=== PATIENT | male | born 1980 | race Caucasian/White ===

== ENCOUNTER 2017-09-26 14:21 | Emergency (ER) | payer OTHER, MEDICAID ==
[~2017-09-26] VITALS: Ht 188 cm; Wt 82.1 kg
[~2017-09-26 14:21] MED LIST: GLU500 PO; IMI50 PO; MIRT30TA PO; QUET400T PO; SERT100T PO
[2017-09-26 14:34] VITALS: BP 138/94
--- NOTE | 2017-09-26 15:52 | NUR ---
PT TAKEN TO OF.
--- NOTE | 2017-09-26 16:10 | NUR ---
SENT FROM THE DENTIST FOR EVALUATION OF LOWER RIGHT JAW/MOUTH PAIN; STARTED LAST NIGHT; HX DM . DENIES N/V/D; SKIN IS PINK/WARM/DRY; AAOX4 WITH EVEN AND STEADY GAIT; LUNGS CLEAR BL; HR EVEN AND REGULAR; PT DENIES ANY FEVER, CP, SOB, OR COUGH AT THIS TIME; PATIENT STATES PAIN OF 10/10 AT THIS TIME; VSS; PATIENT POSITIONED FOR COMFORT; ER MD MADE AWARE OF PT STATUS.
[2017-09-26] MEDS ORDERED: HYDROcodone/APAP 5/325 MG 1 TAB TAB PO ONE (17:05)
[2017-09-26] MEDS ORDERED: CLINDAMYCIN 600 MG/4 ML VIAL IM ONE (17:05)
--- NOTE | 2017-09-26 17:29 | NUR ---
IM CLEOCIN GIVEN TO BOTH RT AND LT GLUTEUS 2ML EACH WITH RN JODIE'S ASSISTANCE
[2017-09-26 18:05] VITALS: BP 122/82
--- NOTE | 2017-09-26 18:05 | NUR ---
Patient discharged with v/s stable. Written and verbal after care instructions given and explained. Patient alert, oriented and verbalized understanding of instructions. Ambulatory with steady gait. All questions addressed prior to discharge. ID band removed. Patient advised to follow up with PMD. Rx of CLINDAMYCIN, NORCO, NAPROSYN, PENICILLIN given. Patient educated on indication of medication including possible reaction and side effects. Opportunity to ask questions provided and answered.
== END 2017-09-26 18:05 | disposition home or self-care (01) ==
LOC: MED 14:21
DX: K04.7 Periapical abscess without sinus (principal); L03.211 Cellulitis of face; E11.9 Type 2 diabetes mellitus without complications; Z88.5 Allergy status to narcotic agent; F17.210 Nicotine dependence, cigarettes, uncomplicated; Z71.6 Tobacco abuse counseling
CPT/HCPCS: 96372; 99283; J3490

== ENCOUNTER 2019-03-16 07:12 | Emergency (ER) | payer OTHER, MEDICAID ==
[~2019-03-16] VITALS: Ht 175.3 cm; Wt 77.1 kg
[2019-03-16 07:15] VITALS: BP 139/63
--- NOTE | 2019-03-16 07:18 | NUR ---
BIBA FROM HOME. PER EMS, PT HAS C/O EPIGASTRIC PAIN RADIATING "UP" X 1 HOUR. PT DENIES ANY N/V. PT IS GUARDING AND CRYING FROM PAIN AT THIS TIME. SKIN WARM AND DRY TO TOUCH. ABDOMEN SOFT, NON TENDER TO TOUCH. PT DENIES SOB, FEVER. IV INITIATED TO LFA, 20G, INTACT AND PATENT. PT PLACED ON FULL STAVE PLANER TENDER. ER TO EVALUATE PT.
--- NOTE | 2019-03-16 07:20 | NUR ---
BLOOD WORK OBTAINED. SENT TO LAB
--- NOTE | 2019-03-16 07:26 | NUR ---
0714-- PT BIBA BLS TO ER BED 8
--- NOTE | 2019-03-16 07:27 | NUR ---
DR. HARDING BEDSIDE EVALUATING PT
--- NOTE | 2019-03-16 07:27 | NUR ---
PT FELL ASLEEP AND DESATURATION NOTED TO 78%. PT WOKEN UP TO TOUCH. PT BACK UP TO 100% 02 SAT RA. PT ADMITS TO TAKING KLONOPIN [address] HARDING AT BEDSIDE. PT STATES NO PAIN AT THIS TIME. FULL CLEAR SPEECH. WILL CONTINUE TO MONITOR.
[2019-03-16] MEDS ORDERED: KETOROLAC 15 MG/ML VIAL IVP ONE ×2 (07:40)
[2019-03-16] MEDS ORDERED: LIDOCAINE VISCOUS 2% 20 ML UDC PO ONE (07:40)
[2019-03-16] MEDS ORDERED: FAMOTIDINE 20 MG/2 ML VIAL IVP ONE (07:40)
[2019-03-16] MEDS ORDERED: ALUMINUM HYD/MAG/SIMETHICONE 30 ML UDC PO ONE (07:40)
[2019-03-16] MEDS ORDERED: PROMETHAZINE 25 MG/ML VIAL IM ONE (07:40)
[2019-03-16] MEDS ORDERED: NACL 0.9% 1,000 ML IV ONE (07:40)
--- NOTE | 2019-03-16 07:48 | NUR ---
PT TAKEN TO CT VIA MARITZA
[2019-03-16 07:56] LABS: BASOPHILS % (AUTO) 0.4 % (0.0-2.0); EOSINOPHILS # (AUTO) 0.2 K/uL (0-0.4); EOSINOPHILS % (AUTO) 2.5 % (0.0-4.0); HEMATOCRIT 43.9 % (36-52); HEMOGLOBIN 14.8 g/dL (12.0-18.0); LYMPHOCYTES # (AUTO) 2.4 K/uL (2.0-11.5); MEAN CORPUSCULAR HEMOGLOBIN 29 pg (27-31); MEAN CORPUSCULAR HGB CONC 34 g/dL (33-37); MEAN CORPUSCULAR VOLUME 85.1 fL (80-94); MONOCYTES # (AUTO) 0.5 K/uL (0.8-1.0); MONOCYTES % (AUTO) 6.2 % (1.7-9.3); NEUTROPHILS # (AUTO) 4.9 K/uL (1.8-7.7); NEUTROPHILS % (AUTO) 60.9 % (42.2-75.2); PLATELET COUNT (AUTO) 350 K/uL (140-450); RED BLOOD CELL COUNT(AUTO) 5.16 MIL/uL (4.20-6.10); RED CELL DISTRIBUTION WIDTH 13.9 % (11.6-13.7)
[2019-03-16 07:56] LABS: APPEARANCE,URINE CLEAR (CLEAR); BILIRUBIN,URINE NEGATIVE (NEGATIVE); BLOOD, URINE NEGATIVE (NEGATIVE); COLOR,URINE YELLOW (YELLOW); LEUKOCYTE ESTERASE ,URINE NEGATIVE (NEGATIVE); NITRITE, URINE NEGATIVE (NEGATIVE); UGLUCOSE NEGATIVE (NEGATIVE)
--- NOTE | 2019-03-16 08:00 | NUR ---
PT TAKEN BACK TO ROOM VIA COLLINRCONNIE FROM CT
[2019-03-16 08:03] LABS: BARBITURATE, URINE NEG. ng/ml (NEG <=200); BENZODIAZEPINE, URINE NEG. ng/mL (NEG <=200); CANNABINOID, URINE NEG. ng/mL (NEG <=50); COCAINE, URINE NEG. ng/mL (NEG <=300); OPIATE, URINE NEG. ng/mL (NEG <=2000); PHENCYCLIDINE SCREEN,URINE NEG. ng/mL (NEG <=25)
[2019-03-16 08:10] LABS: ALBUMIN 4.1 g/dL (3.4-5.0); ANION GAP 15.1 (8-16); BILIRUBIN,DIRECT 0.2 mg/dL (0.0-0.3); CARBON DIOXIDE 25.3 mmol/L (21-32); POTASSIUM 3.4 mmol/L (3.5-5.1); TOTAL BILIRUBIN 0.6 mg/dL (0.0-1.0)
--- NOTE | 2019-03-16 08:11 | NUR ---
PT GIVEN MEDICATION ORDERED. PT TOLERATED WELL.
--- NOTE | 2019-03-16 09:40 | NUR ---
DR HARDING AT BEDSIDE FOR PT RE EVALUATION
[2019-03-16 10:01] VITALS: BP 112/65
--- NOTE | 2019-03-16 10:01 | NUR ---
Patient discharged with v/s stable. Written and verbal after care instructions given and explained. Patient alert, oriented and verbalized understanding of instructions. Ambulatory with steady gait. All questions addressed prior to discharge. ID band removed. Patient advised to follow up with PMD. Rx of Ibuprofen, Omeprazole given. Patient educated on indication of medication including possible reaction and side effects. Opportunity to ask questions provided and answered.
== END 2019-03-16 10:01 | disposition home or self-care (01) ==
LOC: MED 07:12
DX: R10.13 Epigastric pain (principal); F17.200 Nicotine dependence, unspecified, uncomplicated; N20.0 Calculus of kidney; F15.10 Other stimulant abuse, uncomplicated; Z88.5 Allergy status to narcotic agent; Z79.899 Other long term (current) drug therapy; Z71.6 Tobacco abuse counseling
CPT/HCPCS: 36415; 74176; 80053; 80076; 80305; 81003; 82948; 83690; 84484; 85025; 93005; 96372; 96374; 96375; 99284; G0482; J1885; J2550; J3490; J7030

== ENCOUNTER 2019-07-29 15:12 | Inpatient (IN) | payer OTHER, MEDICAID ==
[~2019-07-29] VITALS: Ht 188 cm; Wt 85.7 kg
[2019-07-29 15:18] VITALS: BP 114/75
--- NOTE | 2019-07-29 15:34 | NUR ---
12 lead ekg done, dr. jerome checked
--- NOTE | 2019-07-29 15:35 | NUR ---
PT TAKEN TO BED 11.
--- NOTE | 2019-07-29 16:10 | NUR ---
38 y/o male complaints of headache, chest and back pain that began this morning when he woke up. He stated he felt like he had body aches before he went to bed last night. Patient also stated he did "sanding yesterday without a mask" and not sure if that has irritated his breathing. He denies fever, chills, nausea. Patient stated he vomited once today. He has been drinking, and not eating today. Allergies to morphine. Denies any recent medication or drug use in the last 24 hours.
[2019-07-29] MEDS ORDERED: FAMOTIDINE 20 MG/2 ML VIAL IVP ONE (16:20)
[2019-07-29] MEDS ORDERED: ONDANSETRON 4 MG/2 ML VIAL IVP ONE (16:20)
[2019-07-29] MEDS ORDERED: NACL 0.9% 1,000 ML IV SCH ×2 (16:20→18:37)
[2019-07-29] MEDS ORDERED: KETOROLAC 30 MG/ML VIAL IVP ONE (16:20)
--- NOTE | 2019-07-29 16:24 | NUR ---
XRAY AT BEDSIDE
[2019-07-29 17:02] LABS: HEMOGLOBIN 17.2 g/dL (12.0-18.0); MEAN CORPUSCULAR HEMOGLOBIN 29 pg (27-31); MEAN CORPUSCULAR HGB CONC 34 g/dL (33-37); MEAN CORPUSCULAR VOLUME 86.9 fL (80-94); PLATELET COUNT (AUTO) 355 K/uL (140-450); RED BLOOD CELL COUNT(AUTO) 5.87 MIL/uL (4.20-6.10); RED CELL DISTRIBUTION WIDTH 14.2 % (11.6-13.7); WHITE BLOOD COUNT (AUTO) 9.5 K/uL (4.8-10.8)
[2019-07-29 17:28] LABS: ANION GAP 16.2 (8-16); CARBON DIOXIDE 27.5 mmol/L (21-32); POTASSIUM 3.7 mmol/L (3.5-5.1)
[2019-07-29 17:32] LABS: ALBUMIN 4.6 g/dL (3.4-5.0); TOTAL BILIRUBIN 0.8 mg/dL (0.0-1.0)
[2019-07-29] MEDS ORDERED: fentaNYL 0.05 MG/ML VIAL IVP ONE ×2 (17:40→18:30)
[2019-07-29 18:07] LABS: LYMPHOCYTES % (MANUAL) 3 % (20-46); MONOCYTES % (MANUAL) 5 % (5-12)
[2019-07-29 18:13] LABS: BILIRUBIN,URINE NEGATIVE (NEGATIVE); BLOOD, URINE NEGATIVE (NEGATIVE); LEUKOCYTE ESTERASE ,URINE NEGATIVE (NEGATIVE); NITRITE, URINE NEGATIVE (NEGATIVE); UGLUCOSE NEGATIVE (NEGATIVE)
[2019-07-29 18:17] LABS: APPEARANCE,URINE CLEAR (CLEAR); COLOR,URINE AMBER (YELLOW)
--- NOTE | 2019-07-29 18:26 | NUR ---
PT HOLDING ABD, GRIMICING, GUARDING. REPORTS NON-RADIATING STBABING PAIN AT 10/10 IN EPIGASTRIC REGION. ABD TENDER TO TOUCH IN EPIGASTRIC REGION, FLAT, AND FIRM. ER MD NOTIFIED.
[2019-07-29] MEDS ORDERED: MORPHINE SULFATE 2 MG/ML SYR IVP PRN (18:40)
[2019-07-29] MEDS ORDERED: ONDANSETRON 4 MG/2 ML VIAL IM/IVP PRN (18:40)
[2019-07-29] MEDS ORDERED: ACETAMINOPHEN 325 MG TAB PO PRN (18:40)
[2019-07-29] MEDS ORDERED: HYDROcodone/APAP 7.5/325 MG 1 TAB PO PRN (18:40)
[2019-07-29] MEDS ORDERED: DOCUSATE SODIUM 100 MG GELCAP PO PRN (18:40)
--- NOTE | 2019-07-29 19:00 | NUR ---
PATIENT REFUSED FENTYNAL AND STATED THE PREVIOUS DOSE THAT WAS GIVEN FOR PAIN CAUSED HIM TO HAVE ABDOMINAL PAIN.
--- NOTE | 2019-07-29 19:30 | NUR ---
Patient will be admitted to care of . Admited to MED SURGE. Will go to room 112B. Belongings list completed. Report to KELSY KING.
[2019-07-29 19:35] VITALS: BP 99/62
[2019-07-29] MEDS ORDERED: DEXTROSE 50% 50 ML SYR IVP PRN (19:35)
[2019-07-29] MEDS ORDERED: INSULIN LISPRO SLIDING SCALE 100 UNITS/ML VIAL SUBQ PRN (19:35)
--- NOTE | 2019-07-29 19:35 | NUR ---
ADMITTED 38 YEAR OLD MALE FROM ER VIA GURNEY. ALERT AND ORIENTED X4. ABLE TO AMBULATE TO THE BATHROOM. DENIES PAIN AT THIS TIME. INTRODUCED SELF AND UPDATED BOARD. ORIENTED TO HOSPITAL ROUTINE, CALL LIGHT AND SURROUNDINGS. WITH 20G ON RIGHT AC ON SALINE LOCK. INTACT AND PATENT. NO INFILTRATION NOTED. BED ON LOW POSITION. CALL LIGHT WITHIN REACH. V/S=99/62, 97.6, 92, 18 AND 97% ON ROOM AIR.
[2019-07-29] MEDS ORDERED: PANTOPRAZOLE 40 MG INJ VIAL ONE (20:16)
[2019-07-29] MEDS: DEXT 5% / NACL 0.9% 500 ML IV SCH (20:19)
[2019-07-29 20:25] LABS: PROTHROMBIN TIME 9.3 secs (10.8-13.4)
[2019-07-29] MEDS: PANTOPRAZOLE 40 MG INJ VIAL IVP SCH (20:32)
[2019-07-29] MEDS: metFORMIN 500 MG TAB PO SCH (20:36)
[2019-07-29] MEDS: BLOOD GLUCOSE MONITORING 1 DEV DEV FS SCH (20:38)
[2019-07-29 20:41] LABS: MAGNESIUM 1.9 mg/dL (1.8-2.4); PHOSPHORUS 1.8 mg/dL (2.5-4.9); THYROID STIMULATING HORMONE 0.69 uIU/mL (0.34-3.74)
--- NOTE | 2019-07-29 21:30 | NUR ---
PATIENT AWAKE IN BED. ALL DUE MEDICATIONS GIVEN ORDERED. NO APPARENT DISTRESS NOTED. DENIES PAIN AT THIS TIME. BED ON LOW POSITION. CALL LIGHT WITHIN REACH. WILL CONTINUE TO MONITOR.
--- NOTE | 2019-07-29 23:25 | NUR ---
ROUNDS DONE. PATIENT ASLEEP IN BED. NO APPARENT DISTRESS NOTED. VISIBLE CHEST RISE AND FALL NOTED. BED ON LOW POSITION. WILL CONTINUE TO MONITOR.
[2019-07-30 00:09] LABS: BARBITURATE, URINE NEG. ng/ml (NEG <=200); BENZODIAZEPINE, URINE NEG. ng/mL (NEG <=200); CANNABINOID, URINE NEG. ng/mL (NEG <=50); COCAINE, URINE NEG. ng/mL (NEG <=300); OPIATE, URINE NEG. ng/mL (NEG <=2000); PHENCYCLIDINE SCREEN,URINE NEG. ng/mL (NEG <=25)
--- NOTE | 2019-07-30 01:20 | NUR ---
PATIENT ASLEEP AT THIS TIME. VISIBLE CHEST RISE AND FALL NOTED. BED ON LOW POSITION. WILL CONTINUE TO MONITOR.
[2019-07-30] MEDS: DEXT 5% / NACL 0.9% 500 ML IV SCH ×2 (02:01→05:42)
--- NOTE | 2019-07-30 03:20 | NUR ---
PATIENT ASLEEP IN BED. VISIBLE CHEST RISE AND FALL. WILL CONTINUE TO MONITOR.
--- NOTE | 2019-07-30 05:00 | NUR ---
PATIENT ASLEEP IN BED. NO APPARENT DISTRESS NOTED. WILL CONTINUE TO MONITOR.
--- NOTE | 2019-07-30 06:11 | NUR ---
RECEIVED CALL FROM DR. JARAMILLO WITH ORDER FOR STAT LFT. ORDER NOTED AND CARRIED OUT. Addendum: 07/30/19 at 0749 by Vashti Latham RN PLAN FOR POSSIBLE [facility] TODAY, WAITING FOR LFT RESULTS.
[2019-07-30] MEDS: BLOOD GLUCOSE MONITORING 1 DEV DEV FS SCH ×4 (06:19→21:00)
--- NOTE | 2019-07-30 07:25 | NUR ---
ENDORSED TO AM SHIFT NURSE IN STABLE CONDITION FOR CONTINUITY OF CARE.
--- NOTE | 2019-07-30 07:30 | NUR ---
RECEIVED REPORT FROM PORCELAIN FINISH SPRAYER NURSE AT BEDSIDE. PATIENT IS AWAKE, ALERT AND ORIENTED X4, LYING IN BED. RESPIRATION EVEN AND UNLABORED. IV INTACT AND PATENT TO RIGHT AC WITH D5 NS INFUSING @ 100ML/HR. TOLERATING WELL. NO S/S OF DISTRESS NOTED. CALL LIGHT WITHIN REACH. WILL CONTINUE TO MONITOR PATIENT.
[2019-07-30 08:00] VITALS: BP 100/60
[2019-07-30 08:00] LABS: BASOPHILS % (AUTO) 0.4 % (0.0-2.0); EOSINOPHILS # (AUTO) 0.1 K/uL (0-0.4); HEMATOCRIT 40.2 % (36-52); HEMOGLOBIN 13.6 g/dL (12.0-18.0); LYMPHOCYTES # (AUTO) 0.8 K/uL (2.0-11.5); LYMPHOCYTES % (AUTO) 21.2 % (20.5-51.1); MEAN CORPUSCULAR HEMOGLOBIN 30 pg (27-31); MEAN CORPUSCULAR HGB CONC 34 g/dL (33-37); MEAN CORPUSCULAR VOLUME 87.4 fL (80-94); MONOCYTES # (AUTO) 0.4 K/uL (0.8-1.0); MONOCYTES % (AUTO) 9.3 % (1.7-9.3); NEUTROPHILS # (AUTO) 2.6 K/uL (1.8-7.7); NEUTROPHILS % (AUTO) 67.1 % (42.2-75.2); PLATELET COUNT (AUTO) 269 K/uL (140-450); RED BLOOD CELL COUNT(AUTO) 4.61 MIL/uL (4.20-6.10); WHITE BLOOD COUNT (AUTO) 3.9 K/uL (4.8-10.8)
[2019-07-30 08:15] LABS: ANION GAP 12.7 (8-16); CARBON DIOXIDE 24.8 mmol/L (21-32); CREATININE 0.7 mg/dL (0.7-1.3); POTASSIUM 3.5 mmol/L (3.5-5.1)
[2019-07-30 08:24] LABS: MAGNESIUM 1.9 mg/dL (1.8-2.4); PHOSPHORUS 2.8 mg/dL (2.5-4.9)
[2019-07-30] MEDS: metFORMIN 500 MG TAB PO SCH ×2 (08:33→20:48)
[2019-07-30] MEDS: PANTOPRAZOLE 40 MG INJ VIAL IVP SCH (08:34)
--- NOTE | 2019-07-30 08:40 | NUR ---
PATIENT HAS BEEN SCREENED AND CATEGORIZED LOW NUTRITION RISK. PATIENT WILL BE SEEN WITHIN 7 DAYS OF ADMISSION. 08/05/[address]
[2019-07-30 09:07] LABS: ALBUMIN 2.8 g/dL (3.4-5.0); BILIRUBIN,DIRECT 0.1 mg/dL (0.0-0.3); TOTAL BILIRUBIN 0.5 mg/dL (0.0-1.0)
[2019-07-30] MEDS: DEXT 5% /NACL 0.9% 1,000 ML IV SCH ×2 (09:57→17:19)
--- NOTE | 2019-07-30 09:58 | NUR ---
PATIENT CONTINUES TO BE NPO. PATIENT C/O HEADACHE, 01/17, REQUESTED TYLENOL GIVEN ORDERED PRN. PATIENT AMBULATED TO THE RESTROOM WITH STEADY GAIT. SPOUSE AT BEDSIDE. NO S/S OF DISTRESS NOTED AT THIS TIME. IV INTACT AND PATENT TO RIGHT AC WITH IVF D5 NS INFUSING 100ML/HR. TOLERATING WELL. CALL LIGHT WITHIN REACH.
[2019-07-30 09:59] LABS: CHOL/HDL RATIO 3.6 (1-4.5)
--- NOTE | 2019-07-30 11:30 | NUR ---
PATIENT IS SCHEDULED FOR LAPAROSCOPIC CHOLECYSTECTOMY, POSSIBLE OPEN PER DR. SUAREZ. CONSENT OBTAINED. PATIENT AWARE, VERBALIZED UNDERSTANDING OF THE PROCEDURE. BS IS 86 AT THIS TIME.
--- NOTE | 2019-07-30 13:07 | NUR ---
PATIENT IS GOING OFF THE UNIT TO THE O.R. FOR LAP CHOLECYSTECTOMY PROCEDURE.
--- NOTE | 2019-07-30 13:35 | NUR ---
DC PLANNING 38 YRS OLD MALE ADMITTED FROM HOME WITH A DX OF ACUTE CHOLECYSTITIS. PT HAS A HX OF SCHIZOPHRENIA, BIPOLAR, DM, PNEUMOTHORAX AND CHRONIC BACK PAIN. US SHOWS CHOLECYSTITIS. ADMINISTERED IVF. PATIENT WENT TO SURGERY WITH DR DOUGLAS . DC PLAN TO GO BACK HOME AFTER STABILIZING POST OP CARE. CM TO FOLLOW
[2019-07-30] MEDS ORDERED: DESFLURANE 240 ML BTL INH ONE (13:36)
[2019-07-30] MEDS ORDERED: ONDANSETRON 4 MG/2 ML VIAL ONE (13:36)
[2019-07-30] MEDS ORDERED: NEOSTIGMINE 1:1000 10 MG/10 ML VIAL ONE (13:36)
[2019-07-30] MEDS ORDERED: KETOROLAC 30 MG/ML VIAL ONE (13:36)
[2019-07-30] MEDS ORDERED: PROPOFOL 200 MG/20 ML VIAL IV ONE (13:36)
[2019-07-30] MEDS ORDERED: ROCURONIUM 50 MG/5 ML VIAL IV ONE (13:36)
[2019-07-30] MEDS ORDERED: DEXAMETHASONE 4 MG/ML VIAL ONE (13:36)
[2019-07-30] MEDS ORDERED: GLYCOPYRROLATE 0.2 MG/ML VIAL ONE (13:36)
[2019-07-30] MEDS ORDERED: SUCCINYLCHOLINE CHLORIDE 200 MG/10 ML VIAL IVP ONE (13:36)
[2019-07-30] MEDS ORDERED: MIDAZOLAM 2 MG/2 ML VIAL ONE (13:47)
[2019-07-30] MEDS ORDERED: fentaNYL 0.05 MG/ML VIAL ONE (13:48)
[2019-07-30] MEDS: BUPIVACAINE-MPF/EPI 0.25% 30 ML VIAL INJ ONE ×2 (14:09→14:50)
[2019-07-30] MEDS: THROMBIN KIT 20 MU VIAL TP ONE ×2 (14:45→14:58)
--- NOTE | 2019-07-30 15:04 | NUR ---
PT STILL OFF THE UNIT AT THIS TIME.
--- NOTE | 2019-07-30 16:05 | NUR ---
PT RETURNED FROM S/P [facility]. RECEIVED REPORT FROM KELSY RESTREPO. VS STABLE. WILL MONITOR PATIENT.
[2019-07-30] MEDS ORDERED: KETOROLAC 30 MG/ML VIAL IVP PRN (16:35)
[2019-07-30] MEDS ORDERED: traMADol 50 MG TAB PO PRN (16:40)
[2019-07-30] MEDS ORDERED: ACETAMINOPHEN 650 MG/20.3 ML UDC PO PRN (16:50)
[2019-07-30] MEDS ORDERED: DICYCLOMINE HCL LIQUID 20 MG, ALUMINUM HYD/MAG/SIMETHICONE 30 ML, LIDOCAINE VISCOUS 2% ... PO ONE ×3 (16:50)
[2019-07-30] MEDS ORDERED: DICYCLOMINE HCL LIQUID 20 MG, ALUMINUM HYD/MAG/SIMETHICONE 30 ML, LIDOCAINE VISCOUS 2% ... PO SCH ×3 (18:15)
--- NOTE | 2019-07-30 19:00 | NUR ---
PATIENT IS IN STABLE CONDITION. DENIES PAIN AT THIS TIME. WILL ENDORSE TO WEB EDITOR FOR CONTINUITY OF CARE.
--- NOTE | 2019-07-30 19:30 | NUR ---
RECEIVED REPORT FROM AM SHIFT RN TITUS, FOR PT'S CONTINUITY OF CARE. PT IS AAOX4, FAMILY MEMBER AT BEDSIDE, IS ON ROOM AIR, HAS RIGHT AC 20G WITH D5NS AT 100 ML/HR, DENIES PAIN AT THIS TIME. EXPLAINED TO PT AND FAMILY MEMBER THE PRESIDENT & FOUNDER ROUTINE, THEY VERBALIZED UNDERSTANDING. BED IS ON LOW POSITION, SIDE RAILS ARE UP, AND CALL LIGHT IS WITHIN REACH. WILL MONITOR PT THROUGHOUT SHIFT.
--- NOTE | 2019-07-30 20:48 | NUR ---
PT C/O EPIGASTRIC PAIN, REQUESTED FOR PAIN MEDICATION. ADMINISTERED SCHEDULED IV ABX, AND PO PRN PAIN MEDICATION ORDERED. PT STATES THAT HE FEELS LIKE THERE IS A LUMP IN HIS THROAT, AND WHEN HE TRIES TO CLEAR IT, HE EXPERIENCES PAIN ON THE LOWER LEFT SX INCISION SITE. PT REQUESTED FOR MD TO BE SEEN, NOTIFIED MD AND MD WILL FF THROUGH. WILL CONTINUE TO MONITOR PT.
--- NOTE | 2019-07-30 21:35 | NUR ---
NOTIFIED BY THAT PT WANTS TO LEAVE AMA. PT SIGNED AMA FORM.
--- NOTE | 2019-07-30 21:53 | NUR ---
DC IV, CATHETER PATENT AND INTACT. DC PT ID BAND. PT AND FAMILY MEMBER AWARE AND VERBALIZED UNDERSTANDING OF THE CONSEQUENCES OF LEAVING AMA. PT OFF THE UNIT AT THIS TIME.
== END 2019-07-30 21:55 | disposition left against medical advice (07) | DRG 418 ==
LOC: MED 15:12 → MTU 18:39
PROVIDERS: ADMIT General Practice; ATTEND General Practice
PROC: 0FT44ZZ Resection of Gallbladder, Percutaneous Endoscopic Approach (ICD-10-PCS; principal; 2019-07-30 13:20)
DX: K80.12 Calculus of gallbladder with acute and chronic cholecystitis without obstruction (principal); E44.0 Moderate protein-calorie malnutrition; E11.65 Type 2 diabetes mellitus with hyperglycemia; Z88.5 Allergy status to narcotic agent; F20.9 Schizophrenia, unspecified; G89.29 Other chronic pain; F15.10 Other stimulant abuse, uncomplicated; K74.60 Unspecified cirrhosis of liver; Z82.49 Family history of ischemic heart disease and other diseases of the circulatory system; Z83.3 Family history of diabetes mellitus; Z68.24 Body mass index [BMI] 24.0-24.9, adult; Z53.29 Procedure and treatment not carried out because of patient's decision for other reasons
CPT/HCPCS: 36415; 71045; 76705; 80048; 80053; 80076; 80305; 81003; 82374; 82948; 83036; 83605; 83690; 83735; 84100; 84443; 84484; 85025; 85610; 85730; 87040; 87081; 88304; 93005; 96361; 96365; 96375; 99285; C9113; J0330; J0694; J1100; J1815; J1885; J2250; J2405; J2704; J2710; J3010; J3490; J7030; J7042; J7060; Q0092